=== PATIENT | female | born 1995 | race African-American/Black ===

== ENCOUNTER 2020-03-22 21:42 | Emergency (ER) | payer MEDICAID, SELFPAY ==
[2020-03-22 21:48] VITALS: BP 130/73; PULSE 84; RESP 17; TEMP 36.6; O2SAT 99
--- NOTE | 2020-03-22 22:38 | ED.GENADULT ---
HPI - General Adult General Chief complaint: Skin/Abscess/Foreign Body Stated complaint: generalized rash Time Seen by Provider: 03/22/20 21:45 History of Present Illness HPI narrative: Patient is a 25-year-old female who presents the ER with rash to bilateral upper arms. Began a couple days ago. Is very itchy. Slight redness. No fevers or chills or sweats. No known new exposures to soaps/perfumes/animal dander. She has not been outside where she could have brushed up against any additional allergens. She works in a warehouse. When she gets hot the itching gets worse. She applied hydrocortisone one time but has not done that persistently so she has not had any relief. No weeping or drainage. Related Data Home Medications Medication Instructions Recorded Confirmed Chewable Iron 325 mg PO DAILY 03/22/20 Allergies Allergy/AdvReac Type Severity Reaction Status Date / Time No Known Allergies Allergy Verified 03/22/20 21:52 Review of Systems Constitutional: Constitutional: Denies chills, Denies fever(s) and Denies weakness Integumentary/Breasts: Skin/Breast: Reports pruritus, Denies erythema, Reports rash and Denies skin ulcer PMFSH Past Medical History Medical History (Updated 03/22/20 @ 22:44 by Biju Hyman MD) Healthy female adult Surgical History Surgical History (Updated 03/22/20 @ 22:40 by Biju Hyman MD) History of tonsillectomy Social History Social History (Updated 03/22/20 @ 22:40 by Biju Hyman MD) Smoking status: Former smoker Exam Narrative: Exam Narrative: GENERAL: Well-appearing, well-nourished, and in no acute distress. HEAD: Normocephalic, atraumatic. ENT: Mucous membranes moist. No facial swelling CHEST: Clear to auscultation. No respiratory distress. HEART: Regular rate and rhythm. Normal peripheral pulses. SKIN: Warm, dry. Dry rash is slightly pink to bilateral upper arms over the biceps. Excoriations noted. No pustules or vesicles. Looks similar to eczema. No petechiae or bruising. NEURO: Alert and oriented x3. Course Course Emergency Course: Recommend oral Benadryl and topical hydrocortisone. Follow-up with PCP. Vital Signs Vital signs: Vital Signs Temperature 97.9 F 03/22/20 21:48 Pulse Rate 84 03/22/20 21:48 Respiratory Rate 17 03/22/20 21:48 Blood Pressure 130/73 03/22/20 21:48 Pulse Oximetry 99 03/22/20 21:48 Temperature 97.9 F 03/22/20 21:48 Pulse Rate 84 03/22/20 21:48 Respiratory Rate 17 03/22/20 21:48 Blood Pressure 130/73 03/22/20 21:48 Pulse Oximetry 99 03/22/20 21:48 Medical Decision Making Vital Signs Vital Signs: Vital Signs Temperature 97.9 F 03/22/20 21:48 Pulse Rate 84 03/22/20 21:48 Respiratory Rate 17 03/22/20 21:48 Blood Pressure 130/73 03/22/20 21:48 Pulse Oximetry 99 03/22/20 21:48 Temperature 97.9 F 03/22/20 21:48 Pulse Rate 84 03/22/20 21:48 Respiratory Rate 17 03/22/20 21:48 Blood Pressure 130/73 03/22/20 21:48 Pulse Oximetry 99 03/22/20 21:48 Discharge Plan Discharge Clinical Impression: Rash and nonspecific skin eruption Patient Disposition: Home, Self-Care Condition: Stable Instructions: Eczema (ED) Additional Instructions: Return to ER if you have fever over 100.4 ?F, you have pus draining from your rash, you have additional concerns. Please follow-up with your primary care doctor for further treatment evaluation. Prescriptions: New hydrocortisone 1 % cream 1 applic TOPICAL TID PRN (Reason: rash) Qty: 28 RF: 0 diphenhydramine HCl [Benadryl Allergy] 25 mg tablet 25 mg PO TID PRN (Reason: itching) Qty: 20 RF: 0 No Action Chewable Iron 325 mg PO DAILY RF: 0 Follow-up/Referrals: PHYSICIAN,[employer]ING[employer]ESSOR [Primary Care Provider] -
[2020-03-22 23:13] VITALS: BP 138/82; PULSE 72; RESP 16; O2SAT 99
== END 2020-03-22 23:14 | disposition home or self-care (01) ==
PROVIDERS: Emergency Provider Emergency Medicine
DX: R21 Rash and other nonspecific skin eruption (principal); Z87.891 Personal history of nicotine dependence
CPT/HCPCS: 99283